=== PATIENT | male | born 1990 | race African-American/Black ===

== ENCOUNTER 2018-01-05 03:47 | Emergency (ER) | payer OTHER ==
[~2018-01-05] VITALS: Ht 193 cm; Wt 110.0 kg
[2018-01-05 04:03] VITALS: BP 150/90; PULSE 98; RESP 16; TEMP 98.9; O2SAT 98
--- NOTE | 2018-01-05 04:08 | PD ---
HPI Chief Complaint: Alcohol/Drug Intoxication Time Seen by Provider: 04:06 Travel History International Travel<30 days: No Contact w/Intl Traveler<30days: No Traveled to known affect area: No History of Present Illness HPI 27-year-old male presents under [place] act initiated by the [employer]. The patient reportedly was drinking at a bar and he fell asleep at the bar intoxicated. He was therefore brought here. Symptoms are moderate, aggravated by excessive alcohol use with no alleviating factors. Duration one day. He has no medical complaints and is requesting to be left alone. [facility] Social History Alcohol Use: Yes Tobacco Use: No Allergies-Medications (Allergen,Severity, Reaction): Coded Allergies: No Known Allergies (Unverified , 01/05/18) Reported Meds & Prescriptions Reported Meds & Active Scripts Active No Active Prescriptions or Reported Medications Review of Systems ROS Limitations: Intoxication Except as stated in HPI: all other systems reviewed are Neg Physical Exam Exam Limitations: Intoxication Narrative GENERAL: Well-developed well-nourished male who is grossly intoxicated. He swats at the examiner during attempted examination. SKIN: Warm and dry. HEAD: Atraumatic. Normocephalic. EYES: Pupils equal and round. No scleral icterus. No injection or drainage. ENT: No nasal bleeding or discharge. Mucous membranes pink and moist. NECK: Trachea midline. No JVD. CARDIOVASCULAR: Regular rate and rhythm. No murmur appreciated. RESPIRATORY: No accessory muscle use. Clear to auscultation. Breath sounds equal bilaterally. Gastrointestinal: Refused MUSCULOSKELETAL: No obvious deformities. NEUROLOGICAL: Awake and alert. No obvious cranial nerve deficits. Motor grossly within normal limits. Slurred speech. Data Data Last Documented VS Vital Signs Date Time Temp Pulse Resp B/P (MAP) Pulse Ox O2 Delivery O2 Flow Rate FiO2 01/05/18 04:05 16 98 Room Air 01/05/18 04:03 98.9 98 150/90 (110) MDM Medical Decision Making Medical Screen Exam Complete: Yes Emergency Medical Condition: Yes Medical Record Reviewed: Yes Differential Diagnosis Alcohol intoxication, closed head injury, polysubstance abuse Narrative Course The patient will remain here until he is clinically sober or able to obtain a sober ride home. 0605: Patient is walking steadily. He is stable for discharge. Diagnosis Primary Impression: Alcohol intoxication Additional Instructions: Avoid excessive alcohol use in the future. Med/Other Pt SpecificInfo: No Change to Meds Scripts No Active Prescriptions or Reported Meds Disposition: 01 DISCHARGE HOME Condition: Stable Juwan Geiger Jan 05, 2018 04:08
== END 2018-01-05 06:10 | disposition home or self-care (01) ==
LOC: NEPD 03:47
DX: F10.129 Alcohol abuse with intoxication, unspecified (principal)
CPT/HCPCS: 99282